=== PATIENT | male | born 1970 | race Hispanic/Latino ===

== ENCOUNTER 2021-01-21 13:01 | Inpatient (IN) | payer BC ==
[2021-01-21 17:18] VITALS: BMI 29.4
[2021-01-21 17:24] LABS: Absolute Lymphocytes (CBC) 1.8 K/uL (0.7-4.9); Basophils % 0.6 % (0-1.3); Lymphocytes % 11.1 % (15.3-44.8); MPV 7.8 fL (7.6-11.3); RBC Red Blood Cell Count 4.51 M/uL (4.33-5.43)
[2021-01-21] MEDS ORDERED: ACETAMINOPHEN 500 MG TAB PO PRN (17:31)
[2021-01-21] MEDS ORDERED: ONDANSETRON 4 MG/2 ML VIAL IV PRN (17:31)
--- NOTE | 2021-01-21 17:31 | RAD REPORT ---
EXAM DESCRIPTION: RAD - Hand Right 3 View - 01/21/2021 5:21 pm CLINICAL HISTORY: cellulitis COMPARISON: No comparisonsNone. FINDINGS: No fracture is identified. There is no dislocation or periosteal reaction noted. No bony destructive process seen to suspect osteomyelitis. Patient has prominent soft tissue swelling over th e dorsum of the hand, thenar eminence and thumb. No air or foreign body in the soft tissues. IMPRESSION: Right hand soft tissue swelling with no foreign body or air in the soft tissues. No destructive or acute bone finding.
[2021-01-21 17:41] LABS: Potassium 3.6 mmol/L (3.5-5.1)
[2021-01-21] MEDS ORDERED: ZOLPIDEM TARTRATE 10 MG TABLET PO PRN (17:50)
[2021-01-21] MEDS ORDERED: VANCOMYCIN 1.5 GM in NA CHLORIDE 0.9% 500 ML IVPB ONE ×2 (18:00→20:00)
[2021-01-21] MEDS: CODEINE 30MG/APAP 300MG TAB PO PRN ×2 (18:04→23:51)
[2021-01-21] MEDS: levoFLOXacin 750 MG TAB PO SCH (18:04)
[2021-01-21 18:40] LABS: Urine Appearance CLEAR (Clear); Urine Bilirubin NEGATIVE (Negative); Urine Blood NEGATIVE (Negative); Urine Color YELLOW (Yellow); Urine Glucose NEGATIVE (Negative); Urine Microscopic Reflex NO UMIC; Urine Protein NEGATIVE (Negative); Urine Specific Gravity 1.015 (1.005-1.030)
[2021-01-22] MEDS: levoFLOXacin 750 MG TAB PO SCH (08:50)
[2021-01-22] MEDS: MUPIROCIN 2% OINT 22GM TUBE TOP SCH (08:51)
[2021-01-22] MEDS ORDERED: MUPIROCIN 2% OINT 22GM TUBE TOP SCH (09:00)
[2021-01-22] MEDS ORDERED: LIDOCAINE 1% 20 ML MDV IV ONE (09:52)
[2021-01-22] MEDS: CODEINE 30MG/APAP 300MG TAB PO PRN ×2 (10:13→19:56)
--- NOTE | 2021-01-22 10:39 | P.BOP ---
Preoperative diagnosis: cellultis, abscess right hand/thumb Postoperative diagnosis: same Primary procedure: incision drainage and debridement of righ hand/thumb abscess Secondary procedure: 3x2cm Estimated blood loss: <5cc Specimen: culture Findings: as above, see dictation Anesthesia: Local Complications: None Transferred to: Other Condition: Good
--- NOTE | 2021-01-22 14:24 | CON ---
Date of Consultation: 01/22/2021 Diagnosis: Right hand cellulitis with abscess and necrotic wound. History Of Present Illness: This is a case of a 50-year-old patient with no major medical problems. He works outside, working landscape. He noticed a small what he describes probably was an insect bi te. He has tried to squeeze that area on the base of the thumb and he even though he got a little bi t out, he noticed within a day that the area becomes lytic and some devitalized tissue. He was admit ashu to the hospital, started on IV antibiotics. Even now, he is improving and the redness looks bett er in just hours. He has an area about 3 x 2 cm with devitalized tissue and abscess that needs to be debrided. Surgical consult was obtained. He denies any other trauma. He does not smoke. He does not drink alcohol. Family History: Just kidney stones. Allergies: NONE. Past Medical History: None. Medications: None. Review of Systems: Ten points otherwise unremarkable. Physical Examination: General: The patient is awake and alert. HEENT: Pupils are equal and reactive, anicteric. Neck: Supple. Chest: Clear. Heart: S1 and S2. ABDOMEN: Soft and depressible. Extremities: Full range of motion. Over the right thumb region and hand area, the patient has an ar ea of cellulitis that extends proximally in the hand, but the area of the necrotic tissue at the base , at the time is about 3 x 2 cm, include just some of metatarsal region. It looks superficial absces s. This area will be debrided, all the necrotic tissue will remove and see how we see the base. He has no major pain in that region, so we going to do under local anesthetic. There was good capillary refill. Good peripheral pulses. Full range of motion of the hand with no cyanosis. Neurologic: No neuro deficits. Laboratory Data: Blood work shows WBC count of 16.6, hemoglobin of 12.7, potassium 3.6. An x-ray, n o foreign bodies. Assessment: Cellulitis, necrotic wound and abscess of the right hand. The patient was explained the need for incision and drainage and debridement with benefits, alternatives, and risks including, but not limited to infection, bleeding, damage to adjacent structures, anesthesia complication, nonheali ng wound, DE, and even . He also understands he will have to keep this area clean only with soa p and water, only running water, and then also use the medication prescribed by the primary doctor, i n this case will be Bactroban. ANTOINETTE Voice ID: [id number] Report ID: [id number]
--- NOTE | 2021-01-22 14:39 | OP ---
Date of Procedure: 01/22/2021 Surgeon: Amrik Huffman MD Preoperative Diagnoses: Cellulitis and abscess, right hand and thumb. Postoperative Diagnoses: Cellulitis and abscess, right hand and thumb. Procedure: Incision and drainage with subcutaneous debridement of the right thumb necrotic tissue an d abscess about 3 x 2 cm. Anesthesia: Local anesthetic. Complications: None. Dressings: Bactroban with wet-to-dry. Indication: As we described above in consult, this is a 50-year-old patient known trauma to the thum b with cellulitis and necrotic tissue. The benefits, alternatives, and risks of debridement fully ex plained. Please see above. Proceure In Detail: Under aseptic condition, using lidocaine viscous for local anesthetic, we preppe d and draped the area in usual sterile fashion. A time-out was called. Using an 11 blade and pickup , we proceeded to do debridement of the necrotic tissue that gave us access to an abscess. The under lying tissue looks healthy with no cyanosis. All the necrotic tissue was removed. The area was cult ure. Hemostasis obtained and the area was covered with Bactroban and wet-to-dry. The patient tolera ashu the procedure well. Dressings placed over the area. Sponge count and instrument counts were correct. For plan, see above. HATTIE/DENILSON Voice ID: [id number] Report ID: [id number]
--- NOTE | 2021-01-22 16:54 | PN ---
Date of Progress Note: 01/22/2021 Subjective: The patient states he feels much improved after the surgical procedure. He has minimal amount of discomfort. Good motion up in about postoperatively. Another vancomycin dose is scheduled for tonight. Depending on his status, he may be either be able to be discharged tomorrow or Sunday t o continue on p.o. medications. HR/MODL Voice ID: [id number] Report ID: [id number]
--- NOTE | 2021-01-22 18:36 | HP ---
Date of Admission: 01/22/2021 Entrance Complaint: Painful hand and thumb. History Of Present Illness: The patient states he noticed a little blister few days before coming in to the office. He said he put some pressure on it, some fluid came out, then became red and edematou s, this progressed, so he was concerned enough to come to the office. He also noted that preceding t he injury or trauma and either which he can recall specific events. 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 Past Medical History: The patient had an episode of cellulitis of the elbow about 3-4 months ago, wh ich necessitated extensive p.o. medication with no surgery. Does admits he has been in good general health. Family History: Noncontributory. Social History: Nonsmoker, nondrinker. Physical Examination: General: The patient is a well-built, middle-aged male, in no acute distress. Vital Signs: Stable. Head and Neck: Pupils equal and reactive to light and accommodation. Fundi negative. Trachea midli ne. Thyroid not palpable. ENT: Negative. Chest: Clear to P and A. Cardiovascular: PMI in midclavicular line. Heart sounds normal. Peripheral pulses are present and equal bilaterally. Abdomen: No organomegaly. Bowel sounds present. Extremities: All extremities normal except for his left hand and thumb, which shows an area of eryth morgan, which also has decreased mobility of the thumb, almost completely at the MP joint. A small amou nt of liquid is present just beneath his skin. Rectal: Deferred. Impression: Cellulitis of the hand and finger, unknown etiology. Plan: The patient admitted, placed on IV antibiotics. Surgical procedure is likely indicated and co nsultation must be obtained. HR/MODL Voice ID: [id number]
[2021-01-22] MEDS: VANCOMYCIN 1.5 GM in NA CHLORIDE 0.9% 500 ML IVPB SCH (19:54)
[2021-01-22] MEDS ORDERED: NA CHLORIDE 0.9% 500 ML ONE (19:58)
[2021-01-22] MEDS ORDERED: VANCOMYCIN 1 GM/VIAL ONE (20:00)
[2021-01-22] MEDS ORDERED: VANCOMYCIN 500 MG/VIAL ONE (20:01)
[2021-01-22] MEDS ORDERED: VANCOMYCIN/NS 1 gm 1 GM/250 ML BAG IVPB SCH (21:00)
[2021-01-22 23:58] VITALS: O2SAT 98
[2021-01-23] MEDS: CODEINE 30MG/APAP 300MG TAB PO PRN (09:52)
[2021-01-23] MEDS: VANCOMYCIN 1.5 GM in NA CHLORIDE 0.9% 500 ML IVPB SCH (09:52)
[2021-01-23 12:18] VITALS: BP 164/83; TEMP 97.3
[2021-01-23] MEDS ORDERED: levoFLOXacin 750 MG TAB PO ONE (14:00)
[2021-01-23] MEDS: MUPIROCIN 2% OINT 22GM TUBE TOP SCH (15:08)
--- NOTE | 2021-01-23 18:38 | PN ---
Date of Progress Note: 01/23/2021 The patient's wound looks much improved as far as the edema and cellulitis of the thumb and hand. He is receiving his vancomycin dose this afternoon and can be discharged to continue on Bactrim and Lev aquin. He is to be followed up on Sunday in my office and in [address] Huffman. HR/SANJIVL Voice ID: [id number] Report ID: [id number]
== END 2021-01-23 17:00 | disposition home or self-care (01) | DRG 580 ==
LOC: 2ND 15:51 → OBSVTOIN 01-22 14:25
PROVIDERS: ADMIT Family Medicine; ATTEND Family Medicine
PROC: 0JBJ0ZZ Excision of Right Hand Subcutaneous Tissue and Fascia, Open Approach (ICD-10-PCS; principal; 2021-01-22)
DX: L03.011 Cellulitis of right finger (principal); L02.511 Cutaneous abscess of right hand; L03.113 Cellulitis of right upper limb; Z20.822 Contact with and (suspected) exposure to COVID-19
CPT/HCPCS: 36415; 80048; 81003; 85025; 87040; 87070; 87077; 87186; 87205; G0378; G0379; J3370; J7040; U0003